=== PATIENT | male | born 1955 | race Caucasian/White ===

== ENCOUNTER 2018-02-19 15:00 | Emergency (ER) | END 2018-02-19 17:47 | disposition left against medical advice (07) ==

== ENCOUNTER 2018-10-03 23:14 | Emergency (ER) | payer BC ==
[~2018-10-03] VITALS: Ht 165.1 cm; Wt 93.5 kg
[~2018-10-03 23:14] MED LIST: ASPI81TA52 PO; ATOR40TA68 PO; BENA10TA4 PO; CARV6.2579 PO; TRAM50TA2 PO
[2018-10-03 23:22] VITALS: Ht 165.1 cm; Wt 93.5 kg
[2018-10-04] MEDS ORDERED: SOD CHLORIDE 0.9% 1,000 ML IV STA (00:08)
[2018-10-04] MEDS ORDERED: ONDANSETRON 4 MG INJ IV STA (00:08)
[2018-10-04] MEDS ORDERED: morphine 4 MG/ML VIAL IV STA (00:08)
--- NOTE | 2018-10-04 02:55 | ERD ---
ER Documentation Chief Complaint Chief Complaint C/O WORSENING RT SIDED FLANK PAIN X2 HRS, HX OF KIDNEY STONES HPI This is a very pleasant 63-year-old male right-sided flank pain that is worsened over the past 2 hours. Patient has history of kidney stone says this feels like previous kidney stone episodes. Denies fevers or chills. Denies dysuria. Denies any other current complaints. ROS All systems reviewed and are negative except as per history of present illness. Medications Home Meds Active Scripts Tramadol HCl (Tramadol HCl) 50 Mg Tablet, 50 MG PO Q4 PRN for PAIN, #20 TAB Prov:GLADYS HORNE 10/04/18 Reported Medications Aspirin (Low Dose Aspirin) 81 Mg Tablet.dr, 81 MG PO DAILY, #30 TAB 02/19/18 Carvedilol* (Carvedilol*) 6.25 Mg Tablet, 6.25 MG PO BID, #60 TAB 02/19/18 Benazepril Hcl* (Benazepril Hcl*) 10 Mg Tablet, 10 MG PO BID, #60 TAB 02/19/18 Atorvastatin* (Atorvastatin*) 40 Mg Tablet, 40 MG PO QHS, #30 TAB 02/19/18 Allergies Allergies: Coded Allergies: No Known Allergy (Unverified , 02/19/18) PMhx/Soc History of Surgery: Yes (CABG. TURP, cholecystectomy) Anesthesia Reaction: No Hx Neurological Disorder: No Hx Respiratory Disorders: No Hx Cardiac Disorders: Yes (HTN, CABG, 2 X STENTS, CHF, CAD) Hx Psychiatric Problems: No Hx Miscellaneous Medical Probl: Yes (BPH, DM) Hx Alcohol Use: No Hx Substance Use: No Hx Tobacco Use: Yes Physical Exam Vitals Vital Signs Date Temp Pulse Resp B/P (MAP) Pulse Ox O2 O2 Flow FiO2 Time Delivery Rate 10/03/18 97.2 70 22 159/91 99 23:22 (113) Physical Exam Const: No acute distress Head: Atraumatic Eyes: Normal Conjunctiva ENT: Normal External Ears, Nose and Mouth. Neck: Full range of motion. No meningismus. Resp: Clear to auscultation bilaterally Cardio: Regular rate and rhythm, no murmurs Abd: Soft, non tender, non distended. Normal bowel sounds Skin: No petechiae or rashes Back: No midline or flank tenderness Ext: No cyanosis, or edema Neur: Awake and alert Psych: Normal Mood and Affect Result Diagram: 10/04/18 0039 10/04/18 0039 Results 24 hrs Laboratory Tests Test 10/04/18 00:39 White Blood Count 11.1 10^3/ul Red Blood Count 4.68 10^6/ul Hemoglobin 14.2 g/dl Hematocrit 41.5 % Mean Corpuscular Volume 88.7 fl Mean Corpuscular Hemoglobin 30.3 pg Mean Corpuscular Hemoglobin Concent 34.2 g/dl Red Cell Distribution Width 12.0 % Platelet Count 221 10^3/UL Mean Platelet Volume 10.9 fl Immature Granulocytes % 0.400 % Neutrophils % 50.1 % Lymphocytes % 35.5 % Monocytes % 11.0 % Eosinophils % 2.5 % Basophils % 0.5 % Nucleated Red Blood Cells % 0.0 /100WBC Immature Granulocytes # 0.050 10^3/ul Neutrophils # 5.6 10^3/ul Lymphocytes # 4.0 10^3/ul Monocytes # 1.2 10^3/ul Eosinophils # 0.3 10^3/ul Basophils # 0.1 10^3/ul Nucleated Red Blood Cells # 0.0 10^3/ul Urine Color YELLOW Urine Clarity CLEAR Urine pH 5.0 Urine Specific [place] 1.026 Urine Ketones NEGATIVE mg/dL Urine Nitrite NEGATIVE mg/dL Urine Bilirubin NEGATIVE mg/dL Urine Urobilinogen NEGATIVE mg/dL Urine Leukocyte Esterase NEGATIVE [place]/ul Urine Microscopic RBC 4 /HPF Urine Microscopic WBC 2 /HPF Urine Calcium Oxalate Crystals FEW /HPF Urine Mucus MODERATE /HPF Urine Hemoglobin 2+ mg/dL Urine Glucose NEGATIVE mg/dL Urine Total Protein NEGATIVE mg/dl Sodium Level 142 mmol/L Potassium Level 4.3 mmol/L Chloride Level 106 mmol/L Carbon Dioxide Level 26 mmol/L Anion Gap 10 Blood Urea Nitrogen 22 mg/dl Creatinine 0.84 mg/dl Est Glomerular Filtrat Rate mL/min > 60 mL/min Glucose Level 133 mg/dl Calcium Level 9.8 mg/dl Total Bilirubin 0.4 mg/dl Direct Bilirubin 0.00 mg/dl Indirect Bilirubin 0.4 mg/dl Aspartate Amino Transf (AST/SGOT) 31 IU/L Alanine Aminotransferase (ALT/SGPT) 46 IU/L Alkaline Phosphatase 67 IU/L Total Protein 7.5 g/dl Albumin 4.4 g/dl Globulin 3.10 g/dl Albumin/Globulin Ratio 1.41 Lipase 164 U/L Current Medications Medications Dose Sig/Phoebe Start Time Status Last (Trade) Ordered Route PRN Stop Time Admin Dose Reason Admin Sodium 1,000 ml @ Q1H STAT 10/04/18 DC 10/04/18 Chloride 1,000 mls/hr IV 00:08 10/04/18 00:37 01:07 Morphine 4 mg ONCE STAT 10/04/18 DC 10/04/18 Sulfate IV 00:08 10/04/18 00:34 (morphine) 00:09 Ondansetron 4 mg ONCE STAT 10/04/18 DC 10/04/18 HCl (Zofran IV 00:08 10/04/18 00:34 Inj) 00:09 Procedures/MDM Medical decision making: This is a 63-year-old male here with renal colic. He is clinically stable for outpatient management is tolerating p.o. and is currently pain-free. Patient be discharged home with tramadol for pain control. Advised to follow-up with primary care physician for urology referral as outpatient Departure Diagnosis: Primary Impression: Flank pain Additional Impression: Ureterolithiasis Condition: Stable Patient Instructions: Kidney Stone, Passed GLADYS HORNE Oct 04, 2018 02:55
[2018-10-04 03:01] VITALS: BP 150/90; PULSE 88; RESP 16
== END 2018-10-04 03:02 | disposition home or self-care (01) ==
LOC: E/R 23:14
DX: N20.1 Calculus of ureter (principal); E11.9 Type 2 diabetes mellitus without complications; I50.9 Heart failure, unspecified; I11.0 Hypertensive heart disease with heart failure; I25.10 Atherosclerotic heart disease of native coronary artery without angina pectoris; Z79.82 Long term (current) use of aspirin; Z95.1 Presence of aortocoronary bypass graft; Z98.61 Coronary angioplasty status
CPT/HCPCS: 36415; 74176; 80053; 81001; 83690; 85025; 87086; 96374; 96375; J2270; J2405; J7030; Z7502